=== PATIENT | female | born 1980 | race Hispanic/Latino ===

== ENCOUNTER 2017-04-13 12:47 | Emergency (ER) | payer SELFPAY | END 2017-04-13 13:42 | disposition home or self-care (01) | LOC: ERS 12:47 | DX: J06.9 Acute upper respiratory infection, unspecified (principal); E11.9 Type 2 diabetes mellitus without complications; F41.9 Anxiety disorder, unspecified; F17.210 Nicotine dependence, cigarettes, uncomplicated | CPT/HCPCS: 99282 ==

== ENCOUNTER 2017-07-19 10:41 | Emergency (ER) | payer SELFPAY ==
[2017-07-19] MEDS ORDERED: Fluorescein Opthalmic Strip ONE (12:16)
[2017-07-19] MEDS ORDERED: Proparacaine 0.5% Opth 15 ML BOT ONE (12:19)
== END 2017-07-19 13:02 | disposition home or self-care (01) ==
LOC: ERS 10:41
DX: H10.9 Unspecified conjunctivitis (principal); E11.9 Type 2 diabetes mellitus without complications; F41.9 Anxiety disorder, unspecified; F17.210 Nicotine dependence, cigarettes, uncomplicated; Z71.6 Tobacco abuse counseling
CPT/HCPCS: 99406

== ENCOUNTER 2017-11-19 08:55 | Emergency (ER) | payer SELFPAY ==
--- NOTE | 2017-11-19 10:33 | RAD ---
SINGLE VIEW CHEST: Date: 11/19/17 COMPARISON: 08/21/14. HISTORY: Cough for months. FINDINGS: Single view of the chest shows a normal sized cardiomediastinal silhouette. There is no evidence of c onsolidation, mass, or pleural effusion. The bones are unremarkable. IMPRESSION: No evidence of acute cardiopulmonary disease. POS: [facility]
== END 2017-11-19 09:28 | disposition home or self-care (01) ==
LOC: ERS 08:55
DX: R05 Cough (principal); E11.9 Type 2 diabetes mellitus without complications; F41.9 Anxiety disorder, unspecified; F17.210 Nicotine dependence, cigarettes, uncomplicated; Z71.6 Tobacco abuse counseling
CPT/HCPCS: 71045; 99406

== ENCOUNTER 2017-12-09 05:49 | Inpatient (IN) | payer SELFPAY ==
[2017-12-09 06:26] LABS: #Basophils 0.1 thou/uL (0.0-0.2); #Eosinphils 0.1 thou/uL (0.0-0.7); #Lymphocytes 3.9 thou/uL (1.20-3.40); #Monocytes 0.6 thou/uL (0.11-0.59); #Neutrophils 5.2 thou/uL (1.40-6.50); %Basophils 0.9 % (0.0-1.0); %Eosinophils 0.7 % (0.0-10.0); %Lymphocytes 39.5 % (21.0-51.0); %Monocytes 5.7 % (0.0-10.0); %Neutrophils 53.2 % (42.0-75.0); Mean Corpuscular HGB CONC 35.8 g/dL (32.0-36.0); Mean Corpuscular Hemoglobin 31.1 pg (27.0-31.0); Mean Corpuscular Volume 86.9 fL (78.0-98.0); Mean Platelet Volume 8.1 fL (7.4-10.4); Platelet Count 248 thou/uL (130-400); RBC Distribution Width 11.8 % (11.5-14.5); Red Blood Cell (RBC) Count 5.14 mill/uL (4.20-5.40); White Blood Cell (WBC) Count 9.8 thou/uL (4.8-10.8)
[2017-12-09 06:40] LABS: ALT (SGPT) 18 U/L (8-55); AST (SGOT) 17 U/L (5-34); Albumin 4.1 g/dL (3.5-5.0); Alkaline Phosphatase 89 U/L (40-150); Anion Gap 15 mmol/L (10-20); BUN (Urea Nitrogen) 9 mg/dL (7.0-18.7); Bilirubin, Total 0.7 mg/dL (0.2-1.2); CK (CPK) 39 U/L (29-168); Calc. Creatinine Clearance 0 mL/min (70-130); Calcium 9.4 mg/dL (7.8-10.44); Carbon Dioxide 21 mmol/L (22-29); Chloride 102 mmol/L (98-107); Estimated GFR-MDRD 83; Globulin 3.9 g/dL (2.4-3.5); Glucose 284 mg/dL (70-105); Potassium 3.9 mmol/L (3.5-5.1); Sodium 134 mmol/L (136-145)
[2017-12-09 06:41] LABS: Alcohol Less than 10 mg/dL (Less than 10); Salicylate Less than 8.0 mg/dL (15.0-30.0)
[2017-12-09] MEDS ORDERED: Acetylcysteine 20% (200mg/mL) 15,000 MG in Dextrose 5% in Water 125 ML IVPB ONE (07:15)
[2017-12-09 08:14] LABS: Bilirubin Negative (Negative); Blood, Urine Moderate (Negative); Clarity CLEAR (Clear); Glucose, Urine (Dipstick) >=1000 mg/dL (Negative); Leukocyte Small (Negative); Nitrite Positive (Negative); Protein, Urine (Dipstick) Negative (Neg-Trace); Specific Gravity, Urine 1.023 (1.002-1.036); Urobilinogen 0.2 mg/dL (0.2-1.0); pH, Urine 5.5 (5.0-9.0)
[2017-12-09] MEDS ORDERED: Acetylcysteine 20% (200mg/mL) 5,000 MG in Dextrose 5% in Water 475 ML IVPB ONE (08:15)
[2017-12-09 08:16] LABS: Bacteria/HPF None Seen HPF (None Seen); Hyaline Casts/LPF 0-3 HYALINE CAST LPF (0-3 Hyaline); Pathc Cast-AUWi Flag 0.29 (0-2.49); RBC/HPF 21-50 HPF (0-3)
[2017-12-09 08:43] LABS: Medtox Reader # READER 4; Phencyclidine (PCP) Not Detected (NotDetected); THC/Cannabinoid Screen Not Detected (NotDetected)
[2017-12-09 08:44] LABS: Amphetamine Not Detected (NotDetected); Barbiturates Screen Not Detected (NotDetected); Benzodiazepine Screen Not Detected (NotDetected); Cocaine Metabolite Screen Detected (NotDetected); Medtox Control Line Valid? VALID (VALID); Methadone Not Detected (NotDetected); Methamphetamine Not Detected (NotDetected); Opiate Screen Not Detected (NotDetected); Oxycodone Screen Not Detected (NotDetected); Tricyclic Screen Not Detected (NotDetected)
[2017-12-09] MEDS ORDERED: Ondansetron HCl/PF 4 MG/2 ML Vial ONE (09:14)
[2017-12-09] MEDS ORDERED: Bisacodyl 5 MG TAB PO PRN (09:18)
[2017-12-09] MEDS ORDERED: Ondansetron HCl/PF 4 MG/2 ML Vial IVP PRN (09:23)
[2017-12-09] MEDS ORDERED: ACETYLCYSTEINE IVPB SCH ×2 (09:30→14:00)
[2017-12-09] MEDS ORDERED: WATER IVPB SCH ×2 (09:30→14:00)
[2017-12-09] MEDS ORDERED: DEXTROSE 5% IVPB SCH ×2 (09:30→14:00)
[2017-12-09] MEDS ORDERED: Dextrose 50% Abboject 50 ML SYRINGE SLOW IVP PRN (09:34)
[2017-12-09] MEDS ORDERED: Dextrose 5% in Water 1,000 ML IV PRN (09:34)
[2017-12-09 09:42] LABS: BHCG - Serum Negative (NEGATIVE); Pregs Control Background? CLEAR/WHITE (CLR/WHITE); Pregs Control Bar Appear? YES (CONTROL BAR)
--- NOTE | 2017-12-09 09:55 | HP ---
PRIMARY CARE PROVIDER: None. CHIEF COMPLAINT: Overdose. HISTORY OF PRESENT ILLNESS: Ms. Lizarraga is a pleasant 37-year-old lady who was seen at [facility] on 12/09/2017. She used crack cocaine around 2:00 a.m. Around 3:30 a.m., she took a handful of 500 mg acetaminophen tablets and ingested them. She reports that she has been depressed lately and that is why she overd osed. She reports epigastric pain. She reports nausea and vomiting. She denies fevers or chills. She denies any chest pain. She denies any diarrhea. She reports that she has dull epigastric aching sensation, nonradiating, no known aggravating or reli eving factors, accompanied by nausea and vomiting, currently 2/10. All other systems reviewed and found to be negative. PAST MEDICAL HISTORY: Diabetes mellitus type 2 and diverticulitis. PAST SURGICAL HISTORY: Partial colectomy, appendectomy and tubal ligation. PSYCHIATRIC HISTORY: Significant for anxiety. SOCIAL HISTORY: She smokes 6-10 cigarettes a day. She denies alcohol use. She reports crack cocain e use. FAMILY HISTORY: No family history of depression. ALLERGIES: No known drug allergies. CURRENT MEDICATIONS: None. PHYSICAL EXAMINATION: GENERAL: On examination, Ms. Lizarraga is awake and alert, not in acute distress. She is tearful. VITAL SIGNS: Blood pressure is 116/79, pulse 69, respiratory rate 21, and oxygen saturations 97% on room air. She is afebrile. She is obese. EYES: No scleral icterus. No conjunctival pallor. ENT: Moist mucosal membranes, no oropharyngeal erythema or exudates. NECK: Supple, nontender, trachea is midline. RESPIRATORY: Accessory muscles of breathing are not active. Chest wall movements are symmetric bila terally. LUNGS: Clear to auscultation without wheeze, rhonchi or crepitations. CARDIOVASCULAR: S1 and S2 are heard, regular. Peripheral pulses palpable. No carotid bruit, no per icardial rub. ABDOMEN: Soft, mild epigastric tenderness, no guarding or rigidity, bowel sounds are heard, no hepat omegaly, no splenomegaly. NEUROLOGIC: Cranial nerves II-XII intact. Deep tendon reflexes are 2+. MUSCULOSKELETAL: Power is 5/5 in all 4 extremities. SKIN: No rashes or subcutaneous nodules. LYMPHATIC: No cervical lymphadenopathy. PSYCHIATRIC: Normal mood, normal affect, patient is oriented to person, place, and time. IMAGING DATA AND LABORATORY DATA: Ms. Lizarraga' labs and investigations were reviewed. She had an e lectrocardiogram, which shows normal sinus rhythm, no ST changes to suggest an acute coronary syndrom e. She has normal white count, normal hemoglobin, normal platelet count, decreased sodium of 134, no rmal creatinine, elevated glucose of 284, unremarkable liver profile, normal TSH. Urinalysis positiv e for glucose, blood, nitrite and leukocyte esterase and serum acetaminophen level of 139 mcg/mL. Ur ine toxicology screen is positive for cocaine. Plasma alcohol level is less than 10. ASSESSMENT AND PLAN: Ms. Lizarraga is a pleasant 37-year-old lady who was seen at [facility] on 12/09/2017. Her problem list includes: 1. Acetaminophen overdose: She will be admitted to the hospital for further management including N- Acetyl 15 infusion per Poison Control Center's recommendations. Poison Control Center has already be en contacted by emergency room physician. 2. Depression: When patient is medically stable, [facility] evaluation will be requested. 3. Urinary tract infection. Suspected, based on urinalysis. We will start patient on empiric antib iotics and await urine cultures. 4. Diabetes mellitus type 2: Patient is currently not taking any medications. I will check hemoglo bin A1c and we will start her on insulin sliding scale. LEVEL OF RISK: Moderate. LEVEL OF COMPLEXITY: Moderate.
[2017-12-09 10:03] LABS: Hemoglobin A1c 9.4 % (4.0-6.0)
[2017-12-09] MEDS: HumaLOG 300 UNITS/3 ML VIAL SC PRN ×3 (11:09→20:39)
[2017-12-09] MEDS: cefTRIAXone\\ROCEPHIN 1 GM in Sodium Chloride 0.9% 100 ML IVPB SCH (11:12)
[2017-12-09] MEDS: Nicotine 14 MG PATCH TD SCH (11:13)
[2017-12-09 11:18] LABS: INR-International Normal Ratio 1.1; Prothrombin Time 13.9 SEC (12.0-14.7)
[2017-12-09 15:20] VITALS: BMI 37.0
[2017-12-10 05:05] LABS: #Eosinphils 0.3 thou/uL (0.0-0.7); #Lymphocytes 3.1 thou/uL (1.20-3.40); #Monocytes 0.4 thou/uL (0.11-0.59); #Neutrophils 3.4 thou/uL (1.40-6.50); %Basophils 0.6 % (0.0-1.0); %Eosinophils 3.6 % (0.0-10.0); %Lymphocytes 42.6 % (21.0-51.0); %Monocytes 6.1 % (0.0-10.0); Hemoglobin 14.2 g/dL (12.0-16.0); Mean Corpuscular HGB CONC 35.3 g/dL (32.0-36.0); Mean Corpuscular Hemoglobin 31.1 pg (27.0-31.0); Mean Corpuscular Volume 88.1 fL (78.0-98.0); Mean Platelet Volume 8.3 fL (7.4-10.4); Platelet Count 199 thou/uL (130-400); RBC Distribution Width 11.8 % (11.5-14.5); Red Blood Cell (RBC) Count 4.58 mill/uL (4.20-5.40); White Blood Cell (WBC) Count 7.2 thou/uL (4.8-10.8)
[2017-12-10 05:28] LABS: ALT (SGPT) 13 U/L (8-55); AST (SGOT) 12 U/L (5-34); Albumin 3.4 g/dL (3.5-5.0); Alkaline Phosphatase 70 U/L (40-150); Anion Gap 12 mmol/L (10-20); BUN (Urea Nitrogen) 9 mg/dL (7.0-18.7); Bilirubin, Total 0.4 mg/dL (0.2-1.2); Calc. Creatinine Clearance 177 mL/min (70-130); Carbon Dioxide 22 mmol/L (22-29); Chloride 105 mmol/L (98-107); Estimated GFR-MDRD Greater than 90; Globulin 3.1 g/dL (2.4-3.5); Glucose 233 mg/dL (70-105); Potassium 3.7 mmol/L (3.5-5.1); Protein, Total 6.5 g/dL (6.0-8.3); Sodium 135 mmol/L (136-145)
[2017-12-10] MEDS: HumaLOG 300 UNITS/3 ML VIAL SC PRN ×4 (06:29→21:08)
[2017-12-10] MEDS: Enoxaparin Sodium 40 MG/0.4 ML SYRINGE SC SCH (09:37)
[2017-12-10] MEDS: Nicotine 14 MG PATCH TD SCH (09:37)
[2017-12-10] MEDS: cefTRIAXone\\ROCEPHIN 1 GM in Sodium Chloride 0.9% 100 ML IVPB SCH (09:37)
--- NOTE | 2017-12-10 16:53 | PDOC.PN ---
- Subjective Encounter Start Date: 12/10/17 Encounter Start Time: 16:30 Subjective: f/u for Acetaminophen ingestion/OD tx with NAC. Feels ok overall and -: Tylenol levels non-toxic currently. No SI/HI. + Depression. - Objective MAR Reviewed: Yes Vital Signs & Weight: Vital Signs (12 hours) Temp Pulse Resp BP Pulse Ox 12/10/17 12:00 97.9 F 70 18 105/65 100 12/10/17 08:00 98.2 F 68 18 100 12/10/17 07:00 98.2 F 68 18 111/67 98 Weight Admit Weight 222 lb 10.67 oz Weight 222 lb 10.67 oz I&O: 12/09/17 12/10/17 12/11/17 06:59 06:59 06:59 Intake Total 1648 Output Total 2150 Balance -502 Result Diagrams: 12/10/17 04:16 12/10/17 04:16 Additional Labs: Accuchecks 12/10/17 12/10/17 12/10/17 10:54 05:55 01:47 POC Glucose 219 H 210 H 195 H 12/09/17 12/09/17 20:12 16:28 POC Glucose 287 H 206 H Microbiology 12/09/17 08:00 Urine clean catch Urine Culture - Preliminary Laboratory Tests 12/09/17 12/09/17 12/09/17 06:05 06:11 06:11 Hemoglobin A1c 9.4 H TSH 3rd Generation 2.2585 Serum , Qual Acetaminophen 139.0 H* 12/09/17 12/09/17 06:11 10:55 Hemoglobin A1c TSH 3rd Generation Serum , Qual Negative Acetaminophen 36.0 H EKG Reviewed by me: Yes (Tele - SR) Phys Exam - Physical Examination Constitutional: NAD HEENT: PERRLA, sclera anicteric, oral pharynx no lesions Neck: no nodes, no JVD, supple, full ROM Respiratory: no wheezing, no rales, no rhonchi, clear to auscultation bilateral S1, S2 Cardiovascular: RRR, no significant murmur, no rub, gallop Gastrointestinal: soft, non-tender, no distention, positive bowel sounds Musculoskeletal: no edema, pulses present Neurological: non-focal, normal sensation, moves all 4 limbs Psychiatric: normal affect, A&O x 3 Skin: no rash, normal turgor, cap refill <2 seconds Dx/Plan (1) Acetaminophen overdose of undetermined intent Code(s): T39.1X4A - POISONING BY 4-AMINOPHENOL DERIVATIVES, UNDETERMINED, INIT Status: Acute Comment: Likely not suicidal intent, NAC completed, serial monitoring, sitter 1:1 (2) Cocaine abuse Code(s): F14.10 - COCAINE ABUSE, UNCOMPLICATED Status: Acute Comment: Cessation resources (3) Tobacco abuse Code(s): Z72.0 - TOBACCO USE Status: Acute Comment: Tobacco cessation resources (4) Diabetes mellitus Code(s): E11.9 - TYPE 2 DIABETES MELLITUS WITHOUT COMPLICATIONS Status: Chronic Qualifiers: Diabetes mellitus type: type 2 Comment: Uncontrolled with A1C 9.4, referral for outpt PCP and care home mgmt - 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
--- NOTE | 2017-12-11 03:57 | CON ---
DATE OF CONSULTATION: 12/10/2017 HISTORY OF PRESENT ILLNESS: Ms. Lizarraga is a 37-year-old female, who says that she had a bunch of things in her life go wrong all at one time. She cannot take anymore and so she had a handful of 500 mg Tylenol tablets. She has been started on her treatment for overdose. Her Tylenol level has gone from 139-36 that is from 6:11 a.m. to 10:55 a.m. She had cocaine in her system on her drug screen. She is continuing with her Mucomyst treatments. PAST MEDICAL HISTORY: Remarkable for diabetes, history of a partial colectomy for diverticulitis and appendectomy and tubal ligation. SOCIAL HISTORY: She smokes half pack a day. She does not drink. She does use cocaine. FAMILY HISTORY: Negative for lung disease in early age. ALLERGIES: She has no drug allergies. MEDICATIONS PRIOR TO ADMISSION: None. REVIEW OF SYSTEMS: 10 point system review competed, otherwise negative. PHYSICAL EXAMINATION: VITAL SIGNS: She is afebrile, heart rate is 72, respiratory rate is 20, oximetry is 97, blood pressure 130/86. HEENT: Pupils are equal. Sclerae is anicteric. NECK: Supple. LUNGS: Clear. HEART: Regular rhythm, no S3. ABDOMEN: Soft and nontender. EXTREMITIES: Without clubbing, cyanosis, or edema. NEUROLOGIC: Nonfocal. IMPRESSION AND PLAN: Intentional Tylenol overdose, receiving treatment for this , it does not sound like she took enough to do harm. She will continue her Mucomyst therapy. This is a 70 minute consult with greater than 50% of time spent on unit with coordination of care. SHAVONNE
[2017-12-11 05:15] LABS: ALT (SGPT) 11 U/L (8-55); AST (SGOT) 11 U/L (5-34); Albumin 3.4 g/dL (3.5-5.0); Alkaline Phosphatase 70 U/L (40-150); Anion Gap 11 mmol/L (10-20); BUN (Urea Nitrogen) 10 mg/dL (7.0-18.7); Bilirubin, Total 0.3 mg/dL (0.2-1.2); Calc. Creatinine Clearance 188 mL/min (70-130); Calcium 9.2 mg/dL (7.8-10.44); Carbon Dioxide 23 mmol/L (22-29); Chloride 107 mmol/L (98-107); Estimated GFR-MDRD Greater than 90; Globulin 3.2 g/dL (2.4-3.5); Glucose 204 mg/dL (70-105); Potassium 4.1 mmol/L (3.5-5.1); Protein, Total 6.6 g/dL (6.0-8.3); Sodium 137 mmol/L (136-145)
[2017-12-11 05:20] LABS: Band 2 % (5-11); Eosinophils 2 % (0-10); Hemoglobin 13.9 g/dL (12.0-16.0); Lymphocytes 48 % (21-51); MDiff Complete? YES; Mean Corpuscular HGB CONC 34.4 g/dL (32.0-36.0); Mean Corpuscular Hemoglobin 30.2 pg (27.0-31.0); Mean Corpuscular Volume 87.8 fL (78.0-98.0); Mean Platelet Volume 8.5 fL (7.4-10.4); Monocytes 4 % (0-10); Neutrophil 44 % (42-75); PLT Morphology Comment Appears Adequate; Platelet Count 202 thou/uL (130-400); RBC Distribution Width 11.7 % (11.5-14.5); Red Blood Cell (RBC) Count 4.59 mill/uL (4.20-5.40); White Blood Cell (WBC) Count 8.4 thou/uL (4.8-10.8)
[2017-12-11] MEDS: Nicotine 14 MG PATCH TD SCH (08:41)
[2017-12-11] MEDS: Enoxaparin Sodium 40 MG/0.4 ML SYRINGE SC SCH (08:41)
[2017-12-11] MEDS: cefTRIAXone\\ROCEPHIN 1 GM in Sodium Chloride 0.9% 100 ML IVPB SCH (08:41)
[2017-12-11] MEDS: HumaLOG 300 UNITS/3 ML VIAL SC PRN ×2 (12:35→17:24)
--- NOTE | 2017-12-11 13:07 | DIS ---
DATE OF ADMISSION: 12/09/2017 DATE OF DISCHARGE: 12/11/2017 DISCHARGE DIAGNOSES: 1. Acetaminophen overdose of undetermined intent. 2. Cocaine abuse. 3. Tobacco abuse. 4. Diabetes mellitus type 2, uncontrolled. CONSULTATIONS: Dr. Land with Pulmonology Service. [facility] services. PERTINENT LAB AND X-RAY FINDINGS: Basic metabolic profile within normal limits. Hemoglobin A1c 9.4 on 12/09/2017. TSH 2.26. Serum beta hCG negative on 12/09/2017. CBC within normal limits. Urine d rug screen showed acetaminophen level ranging between 36-139, cocaine positive. Plasma alcohol level less than 10. Urine culture dated 12/09/2017 showed group B streptococcus species 10-25,000 colonie s. Final result greater than 100,000 colonies of mixed skin briseyda. HOSPITAL COURSE: The patient was initially admitted to the intermediate care unit after presenting w ith suspected Tylenol overdose. The patient was placed on N-acetylcysteine protocol after consultati on with Poison Control Center. The patient received appropriate dosing of N-acetylcysteine with over all stable acetaminophen levels on serial monitoring. Exact intent of patient's ingestion unclear, a t which the patient was evaluated by the [facility] service. After discussions with [facility], the patient was determined to be safe to return home with multiple resources given regarding outpatient [facility] followup through their pathway services. The patient was also given community counseling information and [facility] hotline information. The patient was also initiated on low dose metformin 500 mg b.i.d. after de termination that after hemoglobin A1c assessment showed uncontrolled diabetes mellitus. The patient was also given information regarding follow up to establish her primary care provider in the local [facility] area on discharge. Overall, the patient remained clinically stable throughout the hospital cours e, tolerating regular oral intake, ambulating without assistance or difficulty and vital signs remain ing stable. I will examine the patient at the time of discharge and discussed followup instructions. The patient verbalizes understanding and agreement, ready for discharge on 12/11/2017. DISCHARGE MEDICATIONS: 1. Metformin 500 mg 1 tab p.o. b.i.d. 2. Nicotine patch 14 mg transdermally q.24 hours. FOLLOWUP: The patient given information regarding local community health clinics including [facility] and [facility]. The patient may follow up in the next 7 days. CONDITION ON DISCHARGE: Fair. ACTIVITY: Ad lindsay. DIET: ADA. CODE STATUS: FULL. DISPOSITION: Home 12/11/2017. Total time preparing and coordinating discharge 35 minutes.
--- NOTE | 2017-12-11 15:48 | PRG ---
DATE OF SERVICE: 12/11/2017 SUBJECTIVE: Ms. Lizarraga has no complaints today. We discussed drug use and depression and have an interplay. She says she will make sure this never happens again. OBJECTIVE: VITAL SIGNS: She is afebrile, heart rate is 60, respiratory rate 18, oximetry is 98 on room air, blo od pressure 109/71. LUNGS: Clear. HEART: Regular rhythm. ABDOMEN: Soft and nontender. LABORATORY DATA: White count 8.4, hemoglobin 13.9, platelets 202. Electrolytes are normal. Liver enzymes are normal. Albumin is 3.4. IMPRESSION: 1. Status post Tylenol overdose. 2. Diabetes. 3. History of tobacco use. 4. History of crack cocaine use. PLAN: Continue current care. She should follow up with her outpatient physician within 1-2 weeks. She is medically stable from a pulmonary standpoint.
[2017-12-11 16:27] VITALS: BP 123/85; TEMP 97.8
== END 2017-12-11 17:32 | disposition home or self-care (01) | DRG 918 ==
LOC: ERS 05:49 → ERHOLD 07:35 → IMCU/EMU 10:36 → T4-A 12-10 22:01
PROVIDERS: ADMIT Internal Medicine; ATTEND Internal Medicine
DX: T39.1X4A Poisoning by 4-Aminophenol derivatives, undetermined, initial encounter (principal); N39.0 Urinary tract infection, site not specified; Y92.9 Unspecified place or not applicable; F41.9 Anxiety disorder, unspecified; F17.210 Nicotine dependence, cigarettes, uncomplicated; F32.9 Major depressive disorder, single episode, unspecified; F14.10 Cocaine abuse, uncomplicated; E11.65 Type 2 diabetes mellitus with hyperglycemia
CPT/HCPCS: 36415; 36416; 80053; 80306; 80307; 81003; 81015; 82550; 83036; 84443; 84703; 85007; 85025; 85027; 85610; 87077; 87086; 93005; 96361; 96365; 96374; J0132; J0696; J1650; J2405; J7050; J7070

== ENCOUNTER 2020-05-16 17:59 | Emergency (ER) | payer SELFPAY | END 2020-05-16 20:38 | disposition home or self-care (01) | LOC: ERS 17:59 | DX: B37.3 Candidiasis of vulva and vagina (principal); L42 Pityriasis rosea; E11.9 Type 2 diabetes mellitus without complications; F17.210 Nicotine dependence, cigarettes, uncomplicated | CPT/HCPCS: 99283 ==

== ENCOUNTER 2020-08-21 03:13 | Emergency (ER) | payer SELFPAY ==
[2020-08-21] MEDS ORDERED: Lidocaine 1% w/Epinephrine 1:100K 20 ML VIAL ONE (04:25)
[2020-08-21] MEDS ORDERED: Ketorolac Tromethamine 30 MG/ML VIAL ONE (05:19)
== END 2020-08-21 05:41 | disposition home or self-care (01) ==
LOC: ERS 03:13
DX: N76.4 Abscess of vulva (principal); E11.9 Type 2 diabetes mellitus without complications; F17.210 Nicotine dependence, cigarettes, uncomplicated
CPT/HCPCS: 56405; 96372; J1885

== ENCOUNTER 2020-10-27 13:52 | Emergency (ER) | payer SELFPAY ==
[2020-10-27 15:40] LABS: #Basophils 0.1 thou/uL (0.0-0.2); #Eosinphils 0.2 thou/uL (0.0-0.7); #Lymphocytes 3.5 thou/uL (1.20-3.40); #Monocytes 0.6 thou/uL (0.11-0.59); #Neutrophils 5.3 thou/uL (1.40-6.50); %Basophils 0.8 % (0.0-1.0); %Lymphocytes 36.6 % (21.0-51.0); %Monocytes 5.8 % (0.0-10.0); %Neutrophils 54.7 % (42.0-75.0); Hemoglobin 14.4 g/dL (12.0-16.0); Mean Corpuscular HGB CONC 33.9 g/dL (32.0-36.0); Mean Corpuscular Hemoglobin 30.6 pg (27.0-31.0); Mean Corpuscular Volume 90.3 fL (78.0-98.0); Mean Platelet Volume 8.9 fL (7.4-10.4); Platelet Count 260 thou/uL (130-400); RBC Distribution Width 12.3 % (11.5-14.5); White Blood Cell (WBC) Count 9.6 thou/uL (4.8-10.8)
[2020-10-27 15:54] LABS: ALT (SGPT) 17 U/L (8-55); AST (SGOT) 22 U/L (5-34); Albumin 3.9 g/dL (3.5-5.0); Alkaline Phosphatase 115 U/L (40-110); Anion Gap 19 mmol/L (10-20); BUN (Urea Nitrogen) 12 mg/dL (7.0-18.7); Bilirubin, Total 0.2 mg/dL (0.2-1.2); CK (CPK) 62 U/L (29-168); Calc. Creatinine Clearance 0 mL/min (70-130); Calcium 9.1 mg/dL (7.8-10.44); Carbon Dioxide 18 mmol/L (22-29); Chloride 105 mmol/L (98-107); Globulin 3.9 g/dL (2.4-3.5); Glucose 215 mg/dL (70-105); Potassium 3.6 mmol/L (3.5-5.1); Protein, Total 7.8 g/dL (6.0-8.3); Sodium 138 mmol/L (136-145)
[2020-10-27] MEDS ORDERED: Ketorolac Tromethamine 30 MG/ML VIAL ONE ×2 (16:26→16:27)
== END 2020-10-27 17:13 | disposition home or self-care (01) ==
LOC: ERS 13:52
DX: M94.0 Chondrocostal junction syndrome [Tietze] (principal); E11.9 Type 2 diabetes mellitus without complications; Z87.19 Personal history of other diseases of the digestive system; F17.210 Nicotine dependence, cigarettes, uncomplicated; Z79.899 Other long term (current) drug therapy
CPT/HCPCS: 36415; 71045; 80053; 82550; 84484; 85025; 93005; 96372; J1885

== ENCOUNTER 2021-01-08 00:50 | Emergency (ER) | payer SELFPAY ==
[2021-01-08] MEDS ORDERED: Lidocaine 1% PF 5 ML VIAL ONE ×2 (01:50→01:52)
[2021-01-08] MEDS ORDERED: Lidocaine 2% PF 5 ML VIAL ONE (01:57)
== END 2021-01-08 02:59 | disposition home or self-care (01) ==
LOC: ERS 00:50
DX: S62.306A Unspecified fracture of fifth metacarpal bone, right hand, initial encounter for closed fracture (principal); I10 Essential (primary) hypertension; E78.5 Hyperlipidemia, unspecified; E11.9 Type 2 diabetes mellitus without complications; F17.210 Nicotine dependence, cigarettes, uncomplicated; Z79.899 Other long term (current) drug therapy; W22.8XXA Striking against or struck by other objects, initial encounter
CPT/HCPCS: 26605; J2001

== ENCOUNTER 2021-04-11 07:31 | Emergency (ER) | payer SELFPAY ==
[2021-04-11] MEDS ORDERED: Morphine 4 MG/ML VIAL ONE (08:34)
[2021-04-11] MEDS ORDERED: Ondansetron PF 4 MG/2 ML Vial ONE (08:34)
[2021-04-11 08:47] LABS: #Basophils 0.1 thou/uL (0.0-0.2); #Eosinphils 0.2 thou/uL (0.0-0.7); #Lymphocytes 2.5 thou/uL (1.20-3.40); #Monocytes 0.6 thou/uL (0.11-0.59); #Neutrophils 6.7 thou/uL (1.40-6.50); %Basophils 0.8 % (0.0-1.0); %Eosinophils 1.7 % (0.0-10.0); %Monocytes 5.9 % (0.0-10.0); %Neutrophils 66.6 % (42.0-75.0); Hemoglobin 14.5 g/dL (12.0-16.0); Mean Corpuscular HGB CONC 35.1 g/dL (32.0-36.0); Mean Corpuscular Hemoglobin 31.4 pg (27.0-31.0); Mean Corpuscular Volume 89.5 fL (78.0-98.0); Mean Platelet Volume 8.7 fL (7.4-10.4); Platelet Count 236 thou/uL (130-400); RBC Distribution Width 12.2 % (11.5-14.5); Red Blood Cell (RBC) Count 4.61 mill/uL (4.20-5.40)
[2021-04-11 09:06] LABS: BHCG - Serum Negative (NEGATIVE); Pregs Control Background? CLEAR/WHITE (CLR/WHITE); Pregs Control Bar Appear? YES (CONTROL BAR)
[2021-04-11 09:16] LABS: ALT (SGPT) 22 U/L (8-55); AST (SGOT) 19 U/L (5-34); Albumin 3.5 g/dL (3.5-5.0); Alkaline Phosphatase 120 U/L (40-110); Anion Gap 10 mmol/L (10-20); BUN (Urea Nitrogen) 13 mg/dL (7.0-18.7); Bilirubin, Total 0.5 mg/dL (0.2-1.2); Calc. Creatinine Clearance 0 mL/min (70-130); Calcium 9.3 mg/dL (7.8-10.44); Carbon Dioxide 23 mmol/L (22-29); Chloride 101 mmol/L (98-107); Globulin 3.8 g/dL (2.4-3.5); Glucose 297 mg/dL (70-105); Lipase 14 U/L (8-78); Potassium 4.4 mmol/L (3.5-5.1); Protein, Total 7.3 g/dL (6.0-8.3); Sodium 130 mmol/L (136-145)
[2021-04-11] MEDS ORDERED: Iopamidol 370 76% 50 ML VIAL FS ONE (09:40)
[2021-04-11] MEDS ORDERED: Iopamidol-370 76% 500 ML 1 ML ONE (09:40)
[2021-04-11 12:14] LABS: Bacteria/HPF None Seen HPF (None Seen); Bilirubin Negative (Negative); Blood, Urine Negative (Negative); Clarity Clear (Clear); Glucose, Urine (Dipstick) Greater than 1000 mg/dL (Negative); Ketone, Urine Negative (Negative); Leukocyte Negative Leu/uL (Negative); Nitrite 2+ (Negative); Protein, Urine (Dipstick) Negative (Neg-Trace); RBC/HPF 0-3 HPF (0-3); Specific Gravity, Urine 1.025 (1.002-1.036); Squamous Epithelial 0-3 HPF (0-3); Urobilinogen Normal mg/dL (Less than 2); WBC/HPF 0-3 HPF (0-3); pH, Urine 5.5 (5.0-9.0)
== END 2021-04-11 12:48 | disposition home or self-care (01) ==
LOC: ERS 07:31
DX: N39.0 Urinary tract infection, site not specified (principal); E11.65 Type 2 diabetes mellitus with hyperglycemia; E87.1 Hypo-osmolality and hyponatremia; E78.5 Hyperlipidemia, unspecified; I10 Essential (primary) hypertension; E11.9 Type 2 diabetes mellitus without complications; F17.210 Nicotine dependence, cigarettes, uncomplicated; Z79.899 Other long term (current) drug therapy
CPT/HCPCS: 36415; 74177; 80053; 81003; 81015; 83690; 84703; 85025; 96374; 96375; J2270; J2405

== ENCOUNTER 2021-04-18 09:35 | Emergency (ER) | payer SELFPAY | END 2021-04-18 12:58 | disposition home or self-care (01) | LOC: ERS 09:35 | DX: S92.354A Nondisplaced fracture of fifth metatarsal bone, right foot, initial encounter for closed fracture (principal); X50.9XXA Other and unspecified overexertion or strenuous movements or postures, initial encounter; I10 Essential (primary) hypertension; E78.5 Hyperlipidemia, unspecified; E11.9 Type 2 diabetes mellitus without complications; F17.210 Nicotine dependence, cigarettes, uncomplicated ==

== ENCOUNTER 2021-05-03 22:10 | Emergency (ER) | payer SELFPAY ==
[2021-05-03 23:16] LABS: Bilirubin Negative (Negative); Blood, Urine 3+ (Negative); Clarity Clear (Clear); Glucose, Urine (Dipstick) Greater than 1000 mg/dL (Negative); Ketone, Urine Negative (Negative); Leukocyte Negative Leu/uL (Negative); Nitrite Negative (Negative); Protein, Urine (Dipstick) Negative (Neg-Trace); Specific Gravity, Urine 1.019 (1.002-1.036); Squamous Epithelial 0-3 HPF (0-3); Urobilinogen Normal mg/dL (Less than 2); WBC/HPF 0-3 HPF (0-3)
[2021-05-03 23:17] LABS: BHCG - Serum Negative (NEGATIVE); Hemoglobin 13.8 g/dL (12.0-16.0); Mean Corpuscular HGB CONC 35.5 g/dL (32.0-36.0); Mean Corpuscular Hemoglobin 31.6 pg (27.0-31.0); Mean Corpuscular Volume 89.2 fL (78.0-98.0); Mean Platelet Volume 8.9 fL (7.4-10.4); Platelet Count 240 thou/uL (130-400); Pregs Control Background? CLEAR/WHITE (CLR/WHITE); Pregs Control Bar Appear? YES (CONTROL BAR); Red Blood Cell (RBC) Count 4.35 mill/uL (4.20-5.40); White Blood Cell (WBC) Count 9.2 thou/uL (4.8-10.8)
[2021-05-03 23:17] LABS: Bacteria/HPF Rare-Few HPF (None Seen)
[2021-05-03 23:24] LABS: ALT (SGPT) 17 U/L (8-55); AST (SGOT) 20 U/L (5-34); Albumin 3.6 g/dL (3.5-5.0); Alkaline Phosphatase 141 U/L (40-110); Anion Gap 12 mmol/L (10-20); BUN (Urea Nitrogen) 13 mg/dL (7.0-18.7); Bilirubin, Total 0.2 mg/dL (0.2-1.2); Calc. Creatinine Clearance 0 mL/min (70-130); Carbon Dioxide 25 mmol/L (22-29); Chloride 100 mmol/L (98-107); Glucose 412 mg/dL (70-105); Potassium 3.6 mmol/L (3.5-5.1); Protein, Total 7.6 g/dL (6.0-8.3); Sodium 133 mmol/L (136-145)
[2021-05-03] MEDS ORDERED: Ketorolac Tromethamine 30 MG/ML VIAL ONE (23:33)
[2021-05-03 23:44] LABS: Band 1 % (5-11); Eosinophils 2 % (0-10); Lymphocytes 37 % (21-51); MDiff Complete? YES; Monocytes 2 % (0-10); Neutrophil 58 % (42-75)
== END 2021-05-04 00:31 | disposition home or self-care (01) ==
LOC: ERS 22:10
DX: N93.9 Abnormal uterine and vaginal bleeding, unspecified (principal); I10 Essential (primary) hypertension; E11.9 Type 2 diabetes mellitus without complications; E78.5 Hyperlipidemia, unspecified; F17.210 Nicotine dependence, cigarettes, uncomplicated
CPT/HCPCS: 36415; 80053; 81003; 81015; 84703; 85025; 96372; 99284; J1885